=== PATIENT | female | born 1955 | race Caucasian/White ===

== ENCOUNTER → 2018-05-16 | Outpatient (CLI) | payer OTHER ==
[~2018-05-16] VITALS: Ht 165.1 cm; Wt 46.9 kg
[~2018-05-16] MED LIST: AMBIEN 5 MG TABL5 M1; AMITRIPTYLINE H50 M2; ATIVAN0.5 M1 PO; BACTRIM DS TAB1 EACH PO; BUTALB-APAP-CA1 EACH PO; CARISOPRODOL 3350 M1; CARISOPRODOL 3350 MG PO; CIPRO500 M1 PO; CIPRO500 MG PO; CITRATE OF MAG296 ML PO; CLONAZEPAM 1 MG1 M1 PO; COCET PLUS TAB1 EACH; CONCERTA36 MG; CRESTOR10 MG PO; HYDROCODONE-APA1 TA1 PO; LEVAQUIN 250 M250 MG PO; MIRALAX17 GM PO; OXYCODONE HCL 55 MG PO; OXYCODONE HCL10 MG PO; OXYCODONE HCL5 M1; OXYCONTIN10 M1 PO; OXYCONTIN20 M1 PO; PHENAZOPYRIDIN200 M2 PO; SERTRALINE HCL50 MG PO; SYNTHROID50 MCG PO; TRAMADOL 50 MG50 MG; TRAZODONE HCL50 MG PO; ZANAFLEX4 MG PO; ZOFRAN 4 MG ORAL4 MG PO; ZOFRAN ODT4 MG PO; ZOFRAN4 MG PO
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
[2018-05-16 10:55] VITALS: BP 93/54
== END ==
LOC: PAIN 06:59
DX: G89.29 Other chronic pain (principal); M54.5 Low back pain; F98.9 Unspecified behavioral and emotional disorders with onset usually occurring in childhood and adolescence; R10.9 Unspecified abdominal pain; C56.9 Malignant neoplasm of unspecified ovary